=== PATIENT | male | born 1960 | race African-American/Black ===

== ENCOUNTER 2017-12-08 09:50 | Inpatient (IN) | payer OTHER ==
[2017-12-08 11:43] VITALS: BMI 33.6
--- NOTE | 2017-12-08 14:43 | HP ---
CIWA Score - CIWA Score Nausea/Vomitin Muscle Tremors: None Anxiety: 2 Agitation: 3 Paroxysmal Sweats: 3 Orientation: 0-Oriented Tacttile Disturbances: 0-None Auditory Disturbances: 0-None Visual Disturbances: 0-None Headache: 0-None Present CIWA-Ar Total Score: 10 Admission ROS BHS - HPI Chief Complaint: "I am here to get help from alcohol" Allergies/Adverse Reactions: Allergies Allergy/AdvReac Type Severity Reaction Status Date / Time Penicillins AdvReac Severe Difficulty Verified 12/08/17 12:38 Breathing History of Present Illness: 57 y/o male with a long hx of alcohol addiction presents requesting detox. This is pt's first visit here, but he has been in other detox places. He states he completed detox/rehab at a facility in [place] about two weeks ago. Pt originally stated he wanted rehab and when told there are no admissions to rehab on the weekend, said he wants Rehab. Pt will be medically supervised per his CIWA score, which can change based on evaluation tomorrow. E xplained this to pt and he verbalized understanding. Also educated pt on the need to talk to his assigned tomorrow on his desire to do rehab. Hx of DM, HTN, High chol, enlarged heart. Said he has not taken his meds in four days because he said he does not have them with him. Denies any psych hx and declines psych consult Denies past nor current SI. Exam Limitations: No Limitations - Ebola screening Have you traveled outside of the country in the last 21 days: No Have you had contact with anyone from an Ebola affected area: No Have you been sick,other than usual withdrawal symptoms: No Do you have a fever: No - Review of Systems Constitutional: No Symptoms Reported EENT: reports: Other (missing teeth, wears dentures but does not have them with him.) Respiratory: reports: Cough Cardiac: reports: Other (Enlarged heart) GI: reports: Abdominal Distended : reports: No Symptoms Reported Musculoskeletal: reports: Other ("corazon and pins" in L hip) Integumentary: reports: No Symptoms Reported Neuro: reports: Headache, Numbness (Boot feet numbness sometimes) Endocrine: reports: Increased Urine Hematology: reports: No Symptoms Reported Psychiatric: reports: Orientated x3, Agitated Other Systems: Reviewed and Negative Patient History - Patient Medical History Hx Anemia: No Hx Asthma: No Hx Chronic Obstructive Pulmonary Disease (COPD): No Hx Cancer: No Hx Cardiac Disorders: No (Enlarged heart) Hx Congestive Heart Failure: No Hx Hypertension: Yes (on meds) Hx Hypercholesterolemia: Yes (on meds) Hx Pacemaker: No HX Cerebrovascular Accident: No Hx Seizures: No Hx Dementia: No Hx Diabetes: Yes (on meds) Hx Gastrointestinal Disorders: Yes Hx Liver Disease: No Hx Genitourinary Disorders: No Hx Sexually Transmitted Disorders: Yes (syphillis - "years ago" was treated) Hx Renal Disease (ESRD): No Hx Thyroid Disease: No Hx Human Immunodeficiency Virus (HIV): No (negative) Hx Hepatitis C: No Hx Depression: No Hx Suicide Attempt: No (denies) Hx Bipolar Disorder: No Hx Schizophrenia: No - Patient Surgical History Past Surgical History: Yes Hx Neurologic Surgery: No Hx Cataract Extraction: No Hx Cardiac Surgery: No Hx Lung Surgery: No Hx Breast Surgery: No Hx Breast Biopsy: No Hx Abdominal Surgery: No Hx Appendectomy: No Hx Cholecystectomy: No Hx Genitourinary Surgery: No Hx Section: No Hx Orthopedic Surgery: Yes (1st and 2nd phalanges) Other Surgical History: Pelvic bone fx repair x 2001 Anesthesia Reaction: No - PPD History Previous Implant?: No Documented Results: Negative w/o proof Implanted On Prior R Admission?: No PPD to be Administered?: Yes - Reproductive History Patient is a Female of Child Bearing Age (11 -55 yrs old): No - Smoking Cessation Smoking history: Current every day smoker Have you smoked in the past 12 months: Yes Aproximately how many cigarettes per day: 5 Hx Chewing Tobacco Use: No Initiated information on smoking cessation: Yes 'Breaking Loose' booklet given: 12/08/17 - Substance & Tx. History Hx Alcohol Use: Yes Hx Substance Use: No Substance Use Type: Alcohol, Cocaine - Substances Abused Alcohol Route: Oral Frequency: 3-6 times per week Amount used: vodka 1 1/2 pint Age of first use: 23 Date of Last Use: 12/07/17 Cocaine Route: Smoking Frequency: 1-3 times last 30 days Amount used: $ 60- 200 Age of first use: 23 Date of Last Use: 12/04/17 Family Disease History - Family Disease History Family Disease History: Diabetes: Mother (HTN) Admission Physical Exam BHS - Vital Signs Vital Signs: Vital Signs - 24 hr 12/08/17 11:41 Temperature 97.2 F L Pulse Rate 85 Respiratory 20 Rate Blood Pressure 158/98 - Physical General Appearance: Yes: No Apparent Distress, Anxious HEENTM: Yes: Normocephalic, Normal Voice, Other (missing teeth) Respiratory: Yes: Lungs Clear, No Respiratory Distress, No Accessory Muscle Use Neck: Yes: Within Normal Limits, No masses,lesions,Nodules, Trachea in good position Breast: Yes: Breast Exam Deferred Cardiology: Yes: Regular Rate Abdominal: Yes: Non Tender, Soft, Distended, Surgical Scar (healed, to LLQ) Genitourinary: Yes: Within Normal Limits Musculoskeletal: Yes: full range of Motion, Other (limps) Extremities: Yes: Normal Capillary Refill, Normal Inspection Neurological: Yes: Within Normal Limits, Fully Oriented, Alert Integumentary: Yes: Within Normal Limits, Normal Color Lymphatic: Yes: Within Normal Limits - Diagnostic (1) Alcohol dependence, uncomplicated Current Visit: Yes Status: Acute (2) Nicotine dependence Current Visit: Yes Status: Acute (3) DM (diabetes mellitus) Current Visit: Yes Status: Acute (4) HTN (hypertension) Current Visit: Yes Status: Acute (5) High cholesterol Current Visit: Yes Status: Acute (6) Hx of fracture of left hip Current Visit: Yes Status: Acute Cleared for Admission [facility] - Detox or Rehab [facility] Level of Care: Medically Supervised 2Day Detox Regimen/Protocol: Librium [facility] Breath Alcohol Content Breath Alcohol Content: 0 Urine Drug Screen - Results Drug Screen Negative: Yes
[2017-12-08] MEDS ORDERED: LOPERAMIDE HCL 2 MG CAPSULE PO PRN (15:07)
[2017-12-08] MEDS ORDERED: chlordiazePOXIDE HCL 25 MG CAPSULE PO PRN (15:07)
[2017-12-08] MEDS ORDERED: NICOTINE POLACRILEX 2 MG GUM BC PRN (15:07)
[2017-12-08] MEDS ORDERED: hydrOXYzine PAMOATE 50 MG CAPSULE (FP) PO PRN (15:07)
[2017-12-08] MEDS ORDERED: MAGNESIUM HYDROX 2400MG/30ML ORAL SUSPENSION 30 ML CUP PO PRN (15:07)
[2017-12-08] MEDS ORDERED: MAG HYDROX/AL HYDROX/SIMETH 30 ML UNIT-DOSE CUP PO PRN (15:07)
[2017-12-08] MEDS ORDERED: guaiFENesin/D-METHORPHAN HB 10 ML UNIT-DOSE CUPS PO PRN (15:07)
[2017-12-08] MEDS ORDERED: P-EPHED 60MG/TRIPROLIDI 2.5MG TABLET PO PRN (15:07)
[2017-12-08] MEDS ORDERED: MENTHOL/PHENOL 1 EACH UD MM PRN (15:07)
[2017-12-08] MEDS ORDERED: MAGNESIUM CITRATE 300 ML BOTTLE PO PRN (15:07)
[2017-12-08] MEDS ORDERED: IBUPROFEN 400 MG TABLET (FP) PO PRN (15:07)
--- NOTE | 2017-12-08 15:14 | PN ---
BHS Progress Note Note: Pt's librium regimen tapered in line with the 2 day detox. Pt will be reevaluated by provider tomorrow for possible readjustment or not.
--- NOTE | 2017-12-08 15:22 | PN ---
BHS Progress Note Note: pt unable to say the name or dose of his BP and high chol meds. Norvasc ordered for BP
[2017-12-08] MEDS ORDERED: INSULIN SLIDING SCALE (NOVOLOG) 1 VIAL SQ SCH (16:30)
[2017-12-08] MEDS ORDERED: chlordiazePOXIDE HCL 25 MG CAPSULE PO SCH (17:00)
[2017-12-08] MEDS ORDERED: INSULIN (NOVOLOG) ASPART 100 UNITS/ML 10ML VIAL ONE (17:27)
[2017-12-08] MEDS: INSULIN SLIDING SCALE (NOVOLOG) 1 VIAL SQ SCH ×2 (17:34→23:09)
[2017-12-08] MEDS: amLODIPine BESYLATE 10 MG TABLET (FP) PO SCH (17:34)
[2017-12-08] MEDS: chlordiazePOXIDE HCL 25 MG CAPSULE PO SCH ×2 (17:35→23:06)
[2017-12-08] MEDS ORDERED: INSULIN (LEVEMIR) 100 UNITS/ML UNITS SQ SCH (22:00)
[2017-12-08] MEDS ORDERED: MELATONIN 5 MG TABLETS PO PRN (22:00)
[2017-12-08] MEDS: THIAMINE HCL 100 MG TABLET (FP) PO SCH (23:06)
[2017-12-08] MEDS: INSULIN (LEVEMIR) 100 UNITS/ML UNITS SQ SCH (23:07)
[2017-12-09] MEDS: chlordiazePOXIDE HCL 25 MG CAPSULE PO SCH ×2 (06:36→10:28)
[2017-12-09] MEDS: metFORMIN HCL 500 MG TABLET (FP) PO SCH (06:40)
[2017-12-09] MEDS: INSULIN (LEVEMIR) 100 UNITS/ML UNITS SQ SCH ×2 (06:41→22:12)
[2017-12-09] MEDS: INSULIN SLIDING SCALE (NOVOLOG) 1 VIAL SQ SCH ×4 (07:45→22:07)
[2017-12-09 10:09] LABS: URINE APPEARANCE CLEAR; URINE BILIRUBIN NEGATIVE (<2.0 mg/dL); URINE COLOR LTYELLOW; URINE GLUCOSE (UA) 3+ (NEGATIVE); URINE KETONE NEGATIVE (NEGATIVE); URINE LEUK ESTERASE NEGATIVE (NEGATIVE); URINE NITRITE NEGATIVE (NEGATIVE); URINE UROBILINOGEN NEGATIVE mg/dL (0.2-1.0)
[2017-12-09 10:15] LABS: URINE PROTEIN 1+ (NEGATIVE)
[2017-12-09 10:27] LABS: EPI CELLS RARE /HPF (FEW); URINE MUCUS RARE
[2017-12-09] MEDS: amLODIPine BESYLATE 10 MG TABLET (FP) PO SCH (10:28)
[2017-12-09] MEDS: PRENATAL VITAMINS W/ FOLIC ACID TABLET (FP) PO SCH (10:29)
[2017-12-09] MEDS: ACETAMINOPHEN 325 MG TABLET (FP) PO PRN ×2 (10:30→22:15)
[2017-12-09] MEDS ORDERED: INSULIN (NOVOLOG) ASPART 100 UNITS/ML 10ML VIAL ONE ×3 (11:26→22:10)
--- NOTE | 2017-12-09 12:19 | EKG ---
Test Reason : Blood Pressure : / mmHG Vent. Rate : 075 BPM Atrial Rate : 075 BPM P-R Int : 196 ms QRS Dur : 094 ms QT Int : 380 ms P-R-T Axes : 059 026 103 degrees QTc Int : 424 ms NORMAL SINUS RHYTHM RIGHT ATRIAL ENLARGEMENT MODERATE VOLTAGE CRITERIA FOR LVH, MAY BE NORMAL VARIANT NONSPECIFIC ST AND T WAVE ABNORMALITY ABNORMAL ECG NO PREVIOUS ECGS AVAILABLE Confirmed by CANDY SINGLETON MD ([id number]) on 12/09/2017 12:19:02 PM Referred By: JF MCLEAN Confirmed By:CANDY SINGLETON MD
--- NOTE | 2017-12-09 15:03 | PN ---
[facility] CIWA - CIWA Score Nausea/Vomitin-Mild Nausea/No Vomiting Muscle Tremors: 3 Anxiety: 3 Agitation: 1-Slight > Activity Paroxysmal Sweats: 1-Minimal Palms Moist Orientation: 0-Oriented Tacttile Disturbances: 0-None Auditory Disturbances: 0-None Visual Disturbances: 0-None Headache: 0-None Present CIWA-Ar Total Score: 9 BHS Progress Note (SOAP) Subjective: C/o increased anxiety. Mild nausea w/o vomiting. States hands are shaking. C/o numbness in feet and legs.. States was ordered a medication but can't remember the name. Objective: A&O x3. Obese abd S/NT/BS+. Moisture of hands and face. 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 Pedal pulses (+). Thickened skin turgor of extremities, Vital Signs 12/09/17 12/09/17 09:13 13:56 Temperature 97.2 F L 97.3 F L Pulse Rate 73 80 Respiratory 18 18 Rate Blood Pressure 144/92 143/80 Laboratory Last Values POC Glucometer 222 UNITS (80-120) 12/09/17 06:36 Urine Color Ltyellow 12/08/17 07:00 Urine Appearance Clear 12/08/17 07:00 Urine pH 5.0 (5.0-8.0) 12/08/17 07:00 Ur Specific [place] 1.016 (1.001-1.035) 12/08/17 07:00 Urine Protein 1+ (NEGATIVE) H 12/08/17 07:00 Urine Glucose (UA) 3+ (NEGATIVE) H 12/08/17 07:00 Urine Ketones Negative (NEGATIVE) 12/08/17 07:00 Urine Blood Negative (NEGATIVE) 12/08/17 07:00 Urine Nitrite Negative (NEGATIVE) 12/08/17 07:00 Urine Bilirubin Negative (<2.0 mg/dL) 12/08/17 07:00 Urine Urobilinogen Negative mg/dL (0.2-1.0) 12/08/17 07:00 Ur Leukocyte Esterase Negative (NEGATIVE) 12/08/17 07:00 Urine WBC (Auto) 2 /hpf (3-5) 12/08/17 07:00 Urine RBC (Auto) <1 /hpf (0-3) 12/08/17 07:00 Ur Epithelial Cells Rare /HPF (FEW) 12/08/17 07:00 Urine Mucus Rare 12/08/17 07:00 Labs reviewed. Assessment: Alcohol withdrawal. Uncontrolled DM. Numbness of feet. Plan: Continue detox. Continue DM management. Encourage 2 pitchers water daily. Start gabapentin
[2017-12-09] MEDS: chlordiazePOXIDE 5 MG CAPSULE PO SCH ×2 (16:28→22:07)
[2017-12-09] MEDS ORDERED: chlordiazePOXIDE HCL 25 MG CAPSULE PO SCH (17:00)
[2017-12-09] MEDS: GABAPENTIN 300 MG CAPSULE (FP) PO SCH (22:07)
[2017-12-09] MEDS: THIAMINE HCL 100 MG TABLET (FP) PO SCH (22:12)
[2017-12-10] MEDS: chlordiazePOXIDE HCL 10 MG CAPSULE PO SCH ×5 (06:05→22:19)
[2017-12-10] MEDS: metFORMIN HCL 500 MG TABLET (FP) PO SCH (08:00)
[2017-12-10] MEDS: INSULIN (LEVEMIR) 100 UNITS/ML UNITS SQ SCH ×2 (08:00→22:20)
[2017-12-10] MEDS ORDERED: INSULIN (NOVOLOG) ASPART 100 UNITS/ML 10ML VIAL ONE ×4 (08:12→22:23)
[2017-12-10] MEDS: INSULIN SLIDING SCALE (NOVOLOG) 1 VIAL SQ SCH ×4 (08:17→22:19)
[2017-12-10 10:50] LABS: HEMATOCRIT 37.9 % (35.4-49); HEMOGLOBIN 12.2 GM/dL (11.7-16.9); MCH 26.5 pg (25.7-33.7); MCHC 32.3 g/dl (32.0-35.9); MEAN CELL VOLUME 82.2 fl (80-96); MEAN PLT VOLUME 10.4 fl (7.5-11.1); PLATELET COUNT 157 K/MM3 (134-434); RBC 4.61 M/mm3 (4.00-5.60); WHITE BLOOD COUNT 5.1 K/mm3 (4.0-10.0)
[2017-12-10] MEDS: amLODIPine BESYLATE 10 MG TABLET (FP) PO SCH (10:57)
[2017-12-10] MEDS: PRENATAL VITAMINS W/ FOLIC ACID TABLET (FP) PO SCH (10:57)
[2017-12-10 11:17] LABS: ALBUMIN 3.2 g/dl (3.4-5.0); ALK PHOS 78 U/L (45-117); ANION GAP 11 MMOL/L (8-16); BILIRUBIN,TOTAL 0.2 mg/dL (0.2-1); BLOOD UREA NITROGEN 25 mg/dL (7-18); CALCIUM 9.5 mg/dL (8.5-10.1); CHLORIDE 103 mmol/L (98-107); CO2 23 mmol/L (21-32); CREATININE 1.1 mg/dL (0.55-1.3); GLUCOSE,RANDOM 291 mg/dL (74-106); POTASSIUM 4.7 mmol/L (3.5-5.1); SGOT/AST 33 U/L (15-37); SGPT/ALT 128 U/L (13-61); SODIUM 137 mmol/L (136-145); TOT PROT 7.5 g/dl (6.4-8.2)
[2017-12-10] MEDS ORDERED: chlordiazePOXIDE 5 MG CAPSULE PO SCH (17:00)
--- NOTE | 2017-12-10 17:07 | PN ---
[facility] CIWA - CIWA Score Nausea/Vomitin-No Nausea/No Vomiting Muscle Tremors: 3 Anxiety: 1-Mildly Anxious Agitation: 2 Paroxysmal Sweats: 1-Minimal Palms Moist Orientation: 0-Oriented Tacttile Disturbances: 1-Very Mild Itch/Numbness Auditory Disturbances: 0-None Visual Disturbances: 0-None Headache: 1-Very Mild CIWA-Ar Total Score: 9 S Progress Note (SOAP) Subjective: tremor sweat trouble sleep at night discussed weight lost and dietary regimen for diabetes Objective: 12/10/17 17:06 Vital Signs Temperature 97.7 F 12/10/17 13:08 Pulse Rate 78 12/10/17 13:08 Respiratory Rate 18 12/10/17 13:08 Blood Pressure 142/77 12/10/17 13:08 O2 Sat by Pulse Oximetry (%) Laboratory Last Values WBC 5.1 K/mm3 (4.0-10.0) 12/10/17 07:00 RBC 4.61 M/mm3 (4.00-5.60) 12/10/17 07:00 Hgb 12.2 GM/dL (11.7-16.9) 12/10/17 07:00 Hct 37.9 % (35.4-49) 12/10/17 07:00 MCV 82.2 fl (80-96) 12/10/17 07:00 MCH 26.5 pg (25.7-33.7) 12/10/17 07:00 MCHC 32.3 g/dl (32.0-35.9) 12/10/17 07:00 RDW 14.0 % (11.9-15.9) 12/10/17 07:00 Plt Count 157 K/MM3 (134-434) 12/10/17 07:00 MPV 10.4 fl (7.5-11.1) 12/10/17 07:00 Platelet Comment No clumping noted 12/10/17 07:00 Sodium 137 mmol/L (136-145) 12/10/17 07:00 Potassium 4.7 mmol/L (3.5-5.1) 12/10/17 07:00 Chloride 103 mmol/L (98-107) 12/10/17 07:00 Carbon Dioxide 23 mmol/L (21-32) 12/10/17 07:00 Anion Gap 11 MMOL/L (8-16) 12/10/17 07:00 BUN 25 mg/dL (7-18) H 12/10/17 07:00 Creatinine 1.1 mg/dL (0.55-1.3) 12/10/17 07:00 Creat Clearance w eGFR > 60 (>60) 12/10/17 07:00 POC Glucometer 564 UNITS (80-120) 12/10/17 11:06 Random Glucose 291 mg/dL (74-106) H 12/10/17 07:00 Calcium 9.5 mg/dL (8.5-10.1) 12/10/17 07:00 Total Bilirubin 0.2 mg/dL (0.2-1) 12/10/17 07:00 AST 33 U/L (15-37) 12/10/17 07:00 ALT 128 U/L (13-61) H 12/10/17 07:00 Alkaline Phosphatase 78 U/L (45-117) 12/10/17 07:00 Total Protein 7.5 g/dl (6.4-8.2) 12/10/17 07:00 Albumin 3.2 g/dl (3.4-5.0) L 12/10/17 07:00 Urine Color Ltyellow 12/08/17 07:00 Urine Appearance Clear 12/08/17 07:00 Urine pH 5.0 (5.0-8.0) 12/08/17 07:00 Ur Specific [place] 1.016 (1.001-1.035) 12/08/17 07:00 Urine Protein 1+ (NEGATIVE) H 12/08/17 07:00 Urine Glucose (UA) 3+ (NEGATIVE) H 12/08/17 07:00 Urine Ketones Negative (NEGATIVE) 12/08/17 07:00 Urine Blood Negative (NEGATIVE) 12/08/17 07:00 Urine Nitrite Negative (NEGATIVE) 12/08/17 07:00 Urine Bilirubin Negative (<2.0 mg/dL) 12/08/17 07:00 Urine Urobilinogen Negative mg/dL (0.2-1.0) 12/08/17 07:00 Ur Leukocyte Esterase Negative (NEGATIVE) 12/08/17 07:00 Urine WBC (Auto) 2 /hpf (3-5) 12/08/17 07:00 Urine RBC (Auto) <1 /hpf (0-3) 12/08/17 07:00 Ur Epithelial Cells Rare /HPF (FEW) 12/08/17 07:00 Urine Mucus Rare 12/08/17 07:00 RPR Titer Nonreactive (NONREACTIVE) 12/10/17 07:00 lab noted Assessment: 12/10/17 17:06 withdrawal sx diabetes insulin dependent Plan: continue detox
[2017-12-10] MEDS: THIAMINE HCL 100 MG TABLET (FP) PO SCH (22:19)
[2017-12-10] MEDS: GABAPENTIN 300 MG CAPSULE (FP) PO SCH (22:19)
[2017-12-11] MEDS: metFORMIN HCL 500 MG TABLET (FP) PO SCH (06:35)
[2017-12-11] MEDS ORDERED: INSULIN (NOVOLOG) ASPART 100 UNITS/ML 10ML VIAL ONE (06:38)
[2017-12-11] MEDS: INSULIN SLIDING SCALE (NOVOLOG) 1 VIAL SQ SCH (06:39)
[2017-12-11] MEDS: INSULIN (LEVEMIR) 100 UNITS/ML UNITS SQ SCH (06:39)
--- NOTE | 2017-12-11 08:57 | DS ---
[facility] Detox Discharge Summary Admission Date: 12/08/17 Discharge Date: 12/11/17 - History Present History: Alcohol Dependence Additional Comments: 57 years old male admitted on 12/08/17 for alcohol withdrawal sx completed alcohol detox regimen tolerated well denies alcohol withdrawal sx alert oriented x 3 no acute distress aftercare [facility] - Physical Exam Results Vital Signs: Vital Signs Temperature 97.3 F L 12/11/17 08:07 Pulse Rate 70 12/11/17 08:07 Respiratory Rate 18 12/11/17 08:07 Blood Pressure 164/93 12/11/17 08:07 O2 Sat by Pulse Oximetry (%) Pertinent Admission Physical Exam Findings: alcohol withdrawal sx Vital Signs Temperature 98.2 F 12/11/17 09:30 Pulse Rate 89 12/11/17 09:30 Respiratory Rate 18 12/11/17 09:30 Blood Pressure 158/91 12/11/17 09:30 O2 Sat by Pulse Oximetry (%) Laboratory Last Values WBC 5.1 K/mm3 (4.0-10.0) 12/10/17 07:00 RBC 4.61 M/mm3 (4.00-5.60) 12/10/17 07:00 Hgb 12.2 GM/dL (11.7-16.9) 12/10/17 07:00 Hct 37.9 % (35.4-49) 12/10/17 07:00 MCV 82.2 fl (80-96) 12/10/17 07:00 MCH 26.5 pg (25.7-33.7) 12/10/17 07:00 MCHC 32.3 g/dl (32.0-35.9) 12/10/17 07:00 RDW 14.0 % (11.9-15.9) 12/10/17 07:00 Plt Count 157 K/MM3 (134-434) 12/10/17 07:00 MPV 10.4 fl (7.5-11.1) 12/10/17 07:00 Platelet Comment No clumping noted 12/10/17 07:00 Sodium 137 mmol/L (136-145) 12/10/17 07:00 Potassium 4.7 mmol/L (3.5-5.1) 12/10/17 07:00 Chloride 103 mmol/L (98-107) 12/10/17 07:00 Carbon Dioxide 23 mmol/L (21-32) 12/10/17 07:00 Anion Gap 11 MMOL/L (8-16) 12/10/17 07:00 BUN 25 mg/dL (7-18) H 12/10/17 07:00 Creatinine 1.1 mg/dL (0.55-1.3) 12/10/17 07:00 Creat Clearance w eGFR > 60 (>60) 12/10/17 07:00 POC Glucometer 263 UNITS (80-120) 12/11/17 06:34 Random Glucose 291 mg/dL (74-106) H 12/10/17 07:00 Calcium 9.5 mg/dL (8.5-10.1) 12/10/17 07:00 Total Bilirubin 0.2 mg/dL (0.2-1) 12/10/17 07:00 AST 33 U/L (15-37) 12/10/17 07:00 ALT 128 U/L (13-61) H 12/10/17 07:00 Alkaline Phosphatase 78 U/L (45-117) 12/10/17 07:00 Total Protein 7.5 g/dl (6.4-8.2) 12/10/17 07:00 Albumin 3.2 g/dl (3.4-5.0) L 12/10/17 07:00 Urine Color Ltyellow 12/08/17 07:00 Urine Appearance Clear 12/08/17 07:00 Urine pH 5.0 (5.0-8.0) 12/08/17 07:00 Ur Specific [place] 1.016 (1.001-1.035) 12/08/17 07:00 Urine Protein 1+ (NEGATIVE) H 12/08/17 07:00 Urine Glucose (UA) 3+ (NEGATIVE) H 12/08/17 07:00 Urine Ketones Negative (NEGATIVE) 12/08/17 07:00 Urine Blood Negative (NEGATIVE) 12/08/17 07:00 Urine Nitrite Negative (NEGATIVE) 12/08/17 07:00 Urine Bilirubin Negative (<2.0 mg/dL) 12/08/17 07:00 Urine Urobilinogen Negative mg/dL (0.2-1.0) 12/08/17 07:00 Ur Leukocyte Esterase Negative (NEGATIVE) 12/08/17 07:00 Urine WBC (Auto) 2 /hpf (3-5) 12/08/17 07:00 Urine RBC (Auto) <1 /hpf (0-3) 12/08/17 07:00 Ur Epithelial Cells Rare /HPF (FEW) 12/08/17 07:00 Urine Mucus Rare 12/08/17 07:00 RPR Titer Nonreactive (NONREACTIVE) 12/10/17 07:00 lab noted - Treatment Hospital Course: Detox Protocol Followed, Detoxed Safely, Responded well, Discharged Condition Good, Rehab Referral Accepted Patient has Accepted a Rehab Referral to: [facility] - Medication Discharge Medications: Ambulatory Orders Insulin Glargine,Hum.rec.anlog [Lantus] 10 unit SQ DAILY 12/08/17 Insulin Glargine,Hum.rec.anlog [Lantus] 20 unit SQ HS 12/08/17 Metformin HCl [Glucophage] 1,000 mg PO DAILY 12/08/17 Gabapentin 1 cap PO HS 12/09/17 - Diagnosis (1) Alcohol dependence, uncomplicated Status: Acute (2) DM (diabetes mellitus) Status: Chronic Qualifiers: Diabetes mellitus type: type 2 Diabetes mellitus care home insulin use: with terminal system operator use Diabetes mellitus complication status: with unspecified complications Qualified Code(s): E11.8 - Type 2 diabetes mellitus with unspecified complications; 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
[2017-12-11] MEDS: ACETAMINOPHEN 325 MG TABLET (FP) PO PRN (09:22)
[2017-12-11 09:30] VITALS: BP 158/91; PULSE 89; TEMP 98.2
[2017-12-11] MEDS ORDERED: chlordiazePOXIDE HCL 10 MG CAPSULE PO SCH ×2 (10:00→17:00)
== END 2017-12-11 09:36 | disposition home or self-care (01) | DRG 775 ==
LOC: YASAS 09:50 → Y6N 14:02
PROC: HZ2ZZZZ Detoxification Services for Substance Abuse Treatment (ICD-10-PCS; principal; 2017-12-08)
DX: F10.230 Alcohol dependence with withdrawal, uncomplicated (principal); F17.213 Nicotine dependence, cigarettes, with withdrawal; I10 Essential (primary) hypertension; E78.00 Pure hypercholesterolemia, unspecified; E11.9 Type 2 diabetes mellitus without complications; Z79.4 Long term (current) use of insulin; Z87.81 Personal history of (healed) traumatic fracture; Z87.19 Personal history of other diseases of the digestive system; Z86.19 Personal history of other infectious and parasitic diseases; Z88.0 Allergy status to penicillin
CPT/HCPCS: 36415; 80053; 81003; 81015; 82962; 85027; 86593; 93005; 93010